=== PATIENT | male | born 1960 | race Caucasian/White ===

== ENCOUNTER → 2017-03-28 | Outpatient (CLI) | payer BC ==
[~2017-03-28] MED LIST: CORGARD40 MG PO; FLOMAX 0.40.4 MG/CAP PO; IMITREX50 MG PO; NAPROSYN500 MG PO; NORCO 325 MG-51 TAB PO; PYRIDIUM 100MG100 MG PO; SENOKOT S 50 MG1 TAB PO; ZOCOR 10MG10 MG PO
== END ==
LOC: MHCPAIN 08:01
DX: G89.29 Other chronic pain (principal); M47.812 Spondylosis without myelopathy or radiculopathy, cervical region; M54.81 Occipital neuralgia; R51 Headache
CPT/HCPCS: G0463

== ENCOUNTER → 2017-06-11 | Outpatient (CLI) | payer BC | LOC: MHCPAIN 08:03 | DX: G89.29 Other chronic pain (principal); M50.90 Cervical disc disorder, unspecified, unspecified cervical region; M54.12 Radiculopathy, cervical region; M54.81 Occipital neuralgia; R51 Headache | CPT/HCPCS: G0463 ==

== ENCOUNTER → 2024-02-12 | Outpatient (CLI) | payer BC ==
[~2024-02-12] MED LIST changes: +Gadoterate 15 ML VIAL IV ONE
== END ==
LOC: COL.RAD 07:30
DX: H61.892 Other specified disorders of left external ear (principal); H61.891 Other specified disorders of right external ear
CPT/HCPCS: A9575